=== PATIENT | female | born 1955 | race Caucasian/White ===

== ENCOUNTER → 2017-10-16 | Outpatient (CLI) | payer OTHER | LOC: M.RAD 13:41 | DX: Z12.31 Encounter for screening mammogram for malignant neoplasm of breast (principal) ==

== ENCOUNTER 2019-08-12 10:31 | Emergency (ER) | payer OTHER ==
[~2019-08-12] VITALS: Ht 162.6 cm; Wt 90.7 kg
[2019-08-12] MEDS ORDERED: HYDROCHLOROTHIA25 M2 PO (10:45)
[2019-08-12] MEDS ORDERED: ARMOUR THYROID15 M1 PO (10:45)
[2019-08-12] MEDS ORDERED: LIPITOR 20 MG T20 M1 PO (10:45)
[2019-08-12] MEDS ORDERED: SYNTHROID150 MCG PO (10:45)
[2019-08-12] MEDS ORDERED: CARDIZEM SR 60M60 MG PO (10:45)
[2019-08-12 12:58] VITALS: BP 174/73
[2019-08-12] MEDS ORDERED: NORCO 5-325 TA1 EAC1 PO (13:49)
[2019-08-12] MEDS ORDERED: ZOFRAN ODT4 MG SUBLING (13:49)
[2019-08-26] MEDS ORDERED: ARMOUR THYROID60 M1 PO (07:49)
[2019-08-26] MEDS ORDERED: SYMBICORT160 MCG/4. INH (07:50)
[2019-08-29] MEDS ORDERED: NORCO 5-325 TA1 EAC1 PO (19:54)
== END 2019-08-12 14:19 | disposition home or self-care (01) ==
LOC: M.ERS 10:31
DX: S92.351A Displaced fracture of fifth metatarsal bone, right foot, initial encounter for closed fracture (principal); S92.355A Nondisplaced fracture of fifth metatarsal bone, left foot, initial encounter for closed fracture; S92.315A Nondisplaced fracture of first metatarsal bone, left foot, initial encounter for closed fracture; I10 Essential (primary) hypertension; E78.00 Pure hypercholesterolemia, unspecified; Z88.2 Allergy status to sulfonamides; W01.0XXA Fall on same level from slipping, tripping and stumbling without subsequent striking against object, initial encounter; Y93.89 Activity, other specified; Y92.89 Other specified places as the place of occurrence of the external cause; Y99.8 Other external cause status

== ENCOUNTER → 2019-08-26 | Outpatient (CLI) | payer OTHER ==
[~2019-08-26] MED LIST: ARMOUR THYROID15 M1 PO; ARMOUR THYROID60 M1 PO; CARDIZEM SR 60M60 MG PO; HYDROCHLOROTHIA25 M2 PO; LIPITOR 20 MG T20 M1 PO; NORCO 5-325 TA1 EAC1 PO; SYMBICORT160 MCG/4. INH; SYNTHROID150 MCG PO; ZOFRAN ODT4 MG SUBLING
== END ==
LOC: M.CT 09:21
PROVIDERS: ATTEND Orthopaedic Surgery
DX: S92.312A Displaced fracture of first metatarsal bone, left foot, initial encounter for closed fracture (principal); S92.242A Displaced fracture of medial cuneiform of left foot, initial encounter for closed fracture; S92.222A Displaced fracture of lateral cuneiform of left foot, initial encounter for closed fracture; S92.322A Displaced fracture of second metatarsal bone, left foot, initial encounter for closed fracture; S92.232A Displaced fracture of intermediate cuneiform of left foot, initial encounter for closed fracture; S92.225A Nondisplaced fracture of lateral cuneiform of left foot, initial encounter for closed fracture; S92.355A Nondisplaced fracture of fifth metatarsal bone, left foot, initial encounter for closed fracture; S89.302A Unspecified physeal fracture of lower end of left fibula, initial encounter for closed fracture; X58.XXXA Exposure to other specified factors, initial encounter; Y93.89 Activity, other specified; Y92.89 Other specified places as the place of occurrence of the external cause; Y99.8 Other external cause status

== ENCOUNTER → 2019-08-29 | Day surgery (SDC) | payer OTHER ==
[2019-08-29 15:00] LABS: HEMATOCRIT 41.8 % (37.0-47.0); MCH 31.7 pg (26.0-34.0); MCHC 33.6 g/dL (28.0-37.0); MCV 94.3 fL (80.0-100.0); MPV 8.5 fl. (7.2-11.1); RBC 4.43 mil/uL (4.20-5.00); RDW-CV 14.5 % (10.5-14.5); WBC 11.8 thou/uL (4.0-11.0)
[2019-08-29 15:07] LABS: CALCIUM 9.1 mg/dL (8.5-10.1); CREATININE 0.7 mg/dL (0.6-1.3); POTASSIUM 3.5 mmol/L (3.5-5.1)
--- NOTE | 2019-08-29 15:46 | EKG ---
[place] [address] ELECTROCARDIOGRAM REPORT Name: IDALIA WASHINGTON Room: [facility]#: [id number] Admission: 08/29/19 Attend Phys: Rosey Romero DO Discharge: Date of : 57 Date of Service: 08/29/19 1444 Report #: [id number] THIS REPORT FOR: //name// [facility] Test Date: 2019-08-29 Test Time: 14:44:53 Pat Name: IDALIA WASHINGTON Department: Room: Gender: F [employer]: : 1955 Requested By: Rosey Romero Order Number: [id number] Susannah MD: Tai Asencio Measurements Intervals [place] Rate: 88 P: 32 ND: 161 QRS: 54 QRSD: 95 T: 55 QT: 388 QTc: 470 Interpretive Statements Sinus rhythm Borderline T abnormalities, anterior leads No previous ECG available for comparison Electronically Signed On 08-29-2019 15:46:23 CDT by Tai Asencio [email or web address] <ELECTRONICALLY SIGNED> By: Tai Asencio MD, [facility] 08/29/19 1546 1444 1444 Tai Asencio MD, FACC /EPI
--- NOTE | 2019-09-10 09:12 | OP ---
[address] [address] OPERATIVE REPORT Name: FELIXIDALIA Fern Room: [facility]#: [id number] Admission: 08/29/19 Attend Phys: Rosey Romero DO Discharge: Date of : 57 Report #: [id number] THIS REPORT FOR: //name// cc: John Cohen Robin L. FNP THIS REPORT FOR: //name// CC: Rosey Cohen DATE OF SERVICE: 08/29/2019 PREOPERATIVE DIAGNOSES: 1. Left first metatarsal base and shaft fracture. 2. Left second metatarsal base fracture. 3. Left medial cuneiform fracture. 4. Left intermediate cuneiform fracture. 5. Right third toe distal interphalangeal joint mucous cyst. POSTOPERATIVE DIAGNOSES: 1. Left first metatarsal base and shaft fracture. 2. Left second metatarsal base fracture. 3. Left medial cuneiform fracture. 4. Left intermediate cuneiform fracture. 5. Right third toe distal interphalangeal joint mucous cyst. PROCEDURES: 1. Left first TMT joint arthrodesis. 2. Left second TMT joint arthrodesis. 3. Left medial-intermediate cuneiform joint arthrodesis. 4. Right third toe distal interphalangeal joint mucous cyst excision. 5. Intraoperative physician-guided fluoroscopy less than 1 hour. SURGEON: Rosey Romero DO UI SOFTWARE DEVELOPER: Giovanny Andrews DO ANESTHESIA: General and regional block by Anesthesia on the left lower extremity. ESTIMATED BLOOD LOSS: 50 mL. SPECIMENS: None. DRAINS: [place] [address] OPERATIVE REPORT Name: IDALIA WASHINGTON Fern Room: [facility]#: [id number] Admission: 08/29/19 Attend Phys: Rosey Romero DO Discharge: Date of : 57 Report #: [id number] COMPLICATIONS: None. CONDITION: Stable. DISPOSITION: PACU to home. ANTIBIOTICS: Ancef 2 grams IV preoperatively. TOURNIQUET: Left thigh approximately 120 minutes at 300 mmHg. IMPLANTS: Arthrex 2.4 mm T plate, 2.4 mm straight plate with appropriate screws, 3.5 mm cannulated headless screws x 2 and AlloSync bone allograft. INDICATIONS: The patient is a very pleasant 63-year-old female who sustained a fall down some stairs approximately 2 weeks ago. She has been followed in the outpatient setting after being seen initially in the ER. X-ray showed a comminuted first metatarsal base fracture extending into the shaft. I did obtain a CT scan and it showed fractures to the first metatarsal base and shaft, the second metatarsal base, the medial and intermediate cuneiforms, as well as a small zone 1 fifth metatarsal base fracture. Regarding her right foot, she also sustained a zone 2 fifth metatarsal base fracture and she has also had a mucous cyst at the third toe DIP joint that last at least 2 years. She has failed conservative therapies regarding that including shoe wear and activity modifications and is having significant third toe pain. I discussed the CT findings with her. We did plan to treat the fifth metatarsal base fractures conservatively, but regarding the left foot, I did recommend a left primary arthrodesis of the first and second tarsometatarsal joints as well as the intercuneiform joint due to the amount of comminution that she had of the fractures. Also, regarding the right third toe, I did recommend mucous cyst excision at the DIP joint. The benefits, risks, complications, and alternatives of this procedure were discussed with the patient in detail. These include but are not limited to bleeding, surgical site infection, neurovascular compromise, malunion, nonunion, hardware failure, continued pain, need for further surgery, DVT, PE as well as the inherent risks of anesthesia. The patient understands these risks and is agreeable to proceed. Consent was signed in the preoperative holding area and on the chart at time of surgery, operative site was marked. DESCRIPTION OF PROCEDURE: The patient was brought to the operating room and placed supine on the operating table. She was administered general anesthetic. A well-padded tourniquet was placed in the proximal portion of the left thigh. The left lower extremity and right lower extremity were then sterilely prepped with ChloraPrep. This was allowed to dry for 3 minutes. She was then draped freely in usual fashion. A timeout was performed confirming correct patient, site and procedure. Surgical site markings were identified and all in the room were in agreement. Procedure began with the third toe mucous cyst excision on the right foot. A small horizontal incision was made [place] [address] OPERATIVE REPORT Name: IDALIA WASHINGTON Room: [facility]#: [id number] Admission: 08/29/19 Attend Phys: Rosey Romero, DO Discharge: Date of : 57 Report #: [id number]. The cyst was ellipsed out. The joint was debrided with a small rongeur. There was noted to be a small osteophyte within the DIP joint, thought to be causing the cyst. After appropriate cyst debridement and excision had taken place, the wound was irrigated with saline and the skin was closed with 3-0 Vicryl suture. We then turned our attention to the left foot. The left foot was exsanguinated with an Esmarch and tourniquet inflated to 300 mmHg. We started with a medial incision over the first tarsometatarsal joint. This was carried through skin and subcutaneous tissues. Hemostasis was achieved with electrocautery. The first tarsometatarsal joint was exposed. She was noted to have severe comminution at the base of the first metatarsal as well as some comminution at the medial cuneiform. The joint was exposed. The cartilage was denuded. Subchondral plate was broken through exposing the medullary bone underneath the joint. The joint space was fenestrated with a small K-wire and osteotomes. We then made a second incision directly overlying the second tarsometatarsal joint with approximately 4 cm skin bridge between the 2 incisions. This was carried through skin and subcutaneous tissues. Care was taken to protect the neurovascular bundle, throughout the entirety of the procedure. Second tarsometatarsal joint was identified and exposed with subperiosteal dissection. The second TMT joint was then prepared in the same fashion as the first TMT joint. The intercuneiform joint between the medial and intermediate cuneiforms was also fully exposed and prepared in the same fashion. Once all appropriate joint exposures had taken place, we then reduced the first tarsometatarsal joint and held this provisionally with multiple K-wires. We also placed a provisional K-wire across the medial and intermediate inner cuneiform joint. Both of these K-wires were measured, overdrilled and 3.5 mm cannulated headless screws were placed, one across the first tarsometatarsal joint and the other across the medial-intermediate inner cuneiform joint. K-wires were removed at this time. We then chose an appropriate sized 2.4 mm T plate. This was placed on the medial aspect of the first tarsometatarsal joint. The proximal holes in the plate were drilled, measured and filled with appropriate length, a variety of 2.4 mm cortical and locking screws. The same was done in the holes within the shaft. We did drill 1 screw across the first and second metatarsal space as well. We then chose an appropriate sized straight plate and this was placed on the dorsal aspect of the second tarsometatarsal joint, held in the appropriate position with BB tacks and multiple holes were drilled, measured and filled with appropriate length, again a variety of 2.4 mm locking and nonlocking screws. All provisional fixation was removed at this time, X-rays were taken, which confirmed appropriate joint reduction, compression across the joint as well as hardware placement. The 3 mL of AlloSync bone graft was placed across the joint surfaces. The wounds were then thoroughly irrigated with normal saline. Deep tissues were closed with 0 Vicryl suture. Subcutaneous tissue was closed with 3-0 Vicryl suture and skin reapproximated with 3-0 nylon. The wounds on the right feet was dressed with Xeroform, 4 x 4s, Kerlix and Kalin bandage. The left foot was dressed with Xeroform, 4 x 4s, ABD, soft roll and a well-padded posterior plaster splint was applied. Tourniquet was let down on the left at approximately [address] [place] [address] OPERATIVE REPORT Name: IDALIA WASHINGTON Room: [facility].#: [id number] Admission: 08/29/19 Attend Phys: Rosey Walker, DO Discharge: Date of : 57 Report #: [id number] patient tolerated the procedure well without complications, transferred to PACU in stable condition. All needle and sponge counts were correct x 2. I was present throughout all pertinent decision making aspects of the case. <ELECTRONICALLY SIGNED> By: Rosey Romero DO 09/10/19911 1927 2029Alandon Romero DO /nt
== END | disposition home or self-care (01) ==
LOC: M.SUR 09:31
PROVIDERS: ATTEND Orthopaedic Surgery
DX: S92.312A Displaced fracture of first metatarsal bone, left foot, initial encounter for closed fracture (principal); S92.322A Displaced fracture of second metatarsal bone, left foot, initial encounter for closed fracture; S92.242A Displaced fracture of medial cuneiform of left foot, initial encounter for closed fracture; S92.232A Displaced fracture of intermediate cuneiform of left foot, initial encounter for closed fracture; M25.871 Other specified joint disorders, right ankle and foot; I10 Essential (primary) hypertension; J44.9 Chronic obstructive pulmonary disease, unspecified; E03.9 Hypothyroidism, unspecified; K21.9 Gastro-esophageal reflux disease without esophagitis; E78.5 Hyperlipidemia, unspecified; Z98.890 Other specified postprocedural states; Z79.899 Other long term (current) drug therapy; Z11.59 Encounter for screening for other viral diseases; Z87.891 Personal history of nicotine dependence; X58.XXXA Exposure to other specified factors, initial encounter; Y93.89 Activity, other specified; Y92.89 Other specified places as the place of occurrence of the external cause; Y99.8 Other external cause status

== ENCOUNTER → 2019-10-15 | Outpatient (CLI) | payer OTHER ==
[2019-10-15 10:31] LABS: ABSOLUTE EOSINOPHILS 0.3 thou/uL (0.0-0.7); ABSOLUTE LYMPHOCYTES 2.3 thou/uL (0.8-5.3); ABSOLUTE MONOCYTES 0.6 thou/uL (0.0-1.2); ABSOLUTE NEUTROPHILS 6.3 thou/uL (1.6-8.1); BASOPHILS 0.1 %; HEMATOCRIT 45.6 % (37.0-47.0); HEMOGLOBIN 15.4 gm/dL (12.0-15.0); LYMPHOCYTES 24.2 %; MCH 32.4 pg (26.0-34.0); MCHC 33.8 g/dL (28.0-37.0); MONOCYTES 6.4 %; MPV 8.6 fl. (7.2-11.1); NUCLEATED RBCS 0 /100WBC; PLATELET COUNT* 275 thou/uL (150-400); POLYS 66.3 %; RBC 4.75 mil/uL (4.20-5.00); RDW-CV 15.6 % (10.5-14.5); WBC 9.4 thou/uL (4.0-11.0)
[2019-10-15 10:43] LABS: ALBUMIN 3.9 g/dL (3.4-5.0); ALKALINE PHOSPHATASE 106 U/L (46-116); ANION GAP 13 mmol/L (7-16); BUN 15 mg/dL (7-18); CALCIUM 9.1 mg/dL (8.5-10.1); CHLORIDE 99 mmol/L (98-107); CHOLESTEROL 220 mg/dL (<200); CO2 27 mmol/L (21-32); CREATININE 0.8 mg/dL (0.6-1.3); GLUCOSE 113 mg/dL (70-99); HDL CHOLESTEROL 102 mg/dL (>40); LDL CHOLESTEROL 99 mg/dL (<100); SGOT 26 U/L (15-37); SGPT 37 U/L (30-65); SODIUM 139 mmol/L (136-145); TC:HDL 2.2 Ratio (Not establshd); TOTAL BILIRUBIN 0.6 mg/dL (<0.1-1.0); TRIGLYCERIDE 98 mg/dL (<150); VLDL 20 mg/dL (<40)
[2019-10-15 11:43] LABS: POTASSIUM 2.9 mmol/L (3.5-5.1); SERUM ASSESSMENT Clear
== END ==
LOC: M.LAB 10:14
PROVIDERS: ATTEND Nurse Practitioner Family
DX: Z00.00 Encounter for general adult medical examination without abnormal findings (principal); I10 Essential (primary) hypertension; E03.9 Hypothyroidism, unspecified; E78.5 Hyperlipidemia, unspecified; Z79.899 Other long term (current) drug therapy

== ENCOUNTER → 2019-10-30 | Outpatient (CLI) | payer OTHER | LOC: M.LAB 10:39 | PROVIDERS: ATTEND Nurse Practitioner Family | DX: E87.5 Hyperkalemia (principal) ==

== ENCOUNTER → 2021-04-05 | Outpatient (CLI) | payer OTHER | LOC: M.CT 14:00 | PROVIDERS: ATTEND Orthopaedic Surgery | DX: S92.901A Unspecified fracture of right foot, initial encounter for closed fracture (principal); M85.871 Other specified disorders of bone density and structure, right ankle and foot; M79.671 Pain in right foot; X58.XXXA Exposure to other specified factors, initial encounter; Y93.89 Activity, other specified; Y92.89 Other specified places as the place of occurrence of the external cause; Y99.8 Other external cause status ==